=== PATIENT | female | born 1970 | race Two or more races ===

== ENCOUNTER 2017-02-18 21:39 | Observation (INO) | payer OTHER ==
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
[2017-02-18] MEDS ORDERED: HYDROmorphONE/DILAUDID 1 MG/ML SYR IVP ONE (22:15)
[2017-02-18] MEDS ORDERED: ONDANSETRON 4 MG/2 ML VIAL IVP ONE ×2 (22:15→23:25)
[2017-02-18] MEDS ORDERED: ONDANSETRON 4 MG/2 ML VIAL ONE (22:16)
[2017-02-18] MEDS ORDERED: HYDROmorphONE/DILAUDID 1 MG/ML SYR ONE (22:17)
[2017-02-18] MEDS ORDERED: IOPAMIDOL (ISOVUE-300) 100 ML BTL ONE (22:55)
[2017-02-18] MEDS ORDERED: NS 1,000 ML IV ONE (23:25)
[2017-02-19] MEDS ORDERED: fentaNYL 100 MCG/2 ML INJ IVP ONE
[2017-02-19] MEDS ORDERED: KETOROLAC 15 MG/1 ML SDV IVP ONE (00:01)
[2017-02-19] MEDS ORDERED: NS 1,000 ML IV ONE ×2 (00:04→00:05)
[2017-02-19 00:05] LABS: % IMMATURE GRANULYOCYTES 0.3 % (0.0-1.1); ABSOLUTE IMMATURE GRANULOCYTES 0.03 10^3/uL (0.00-0.10); ADD DIFF? NO; ADD MORPH? NO; ADD SCAN? NO; ATYPICAL LYMPHOCYTE FLAG 10 (0-99); FRAGMENT RBC FLAG 0 (0-99); HEMATOCRIT 43.9 % (38.0-47.0); HEMOGLOBIN 14.6 g/dL (12.6-16.3); LEFT SHIFT FLG 0 (0-99); LIPEMIA HEMOLYSIS FLAG 80 (0-99); MEAN CELL HEMOGLOBIN CONCENTR. 33.3 g/dL (32.4-36.7); MEAN CELL VOLUME 87.3 fL (81.5-99.8); MEAN PLATELET VOLUME 12.4 fL (8.7-11.7); PLATELET CLUMPS FLAG 10 (0-99); PLATELET COUNT 301 10^3/uL (150-400); RED BLOOD CELL COUNT 5.03 10^6/uL (4.18-5.33); RED CELL DISTRIBUTION WIDTH 13.2 % (11.5-15.2)
[2017-02-19] MEDS ORDERED: KETOROLAC 30 MG/1 ML SDV ONE (00:08)
[2017-02-19] MEDS ORDERED: fentaNYL 100 MCG/2 ML INJ ONE (00:09)
[2017-02-19 00:12] LABS: ANION GAP 14 mEq/L (8-16); CARBON DIOXIDE 21 mEq/l (22-31); CHLORIDE 103 mEq/L (97-110); CREATININE 0.8 mg/dL (0.6-1.0); GLOMERULAR FILTRATION RATE > 60; GLUCOSE 108 mg/dL (70-100); POTASSIUM 3.8 mEq/L (3.5-5.2); SODIUM 138 mEq/L (134-144)
[2017-02-19] MEDS ORDERED: TDAP ADULT 0.5 ML INJ (BOOSTRIX) IM ONE ×2 (00:26→00:39)
[2017-02-19 00:34] LABS: INR 0.91 (0.83-1.16); PROTIME(PATIENT) 12.2 SEC (12.0-15.0)
[2017-02-19 00:35] LABS: APTT 24.1 SEC (23.0-38.0)
[2017-02-19] MEDS ORDERED: HYDROmorphONE/DILAUDID 1 MG/ML SYR IVP PRN (01:19)
[2017-02-19] MEDS ORDERED: CYCLOBENZAPRINE 10 MG TAB PO PRN (01:28)
[2017-02-19] MEDS ORDERED: LR 1,000 ML IV SCH (01:30)
[2017-02-19] MEDS ORDERED: SCOPOLAMINE HYDROBROMIDE 1 MG/3 DAYS PATCH TD SCH (01:30)
[2017-02-19] MEDS: ACETAMINOPHEN 500 MG TAB PO SCH ×2 (02:27→08:07)
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
[2017-02-19 06:02] LABS: % IMMATURE GRANULYOCYTES 0.1 % (0.0-1.1); ABSOLUTE IMMATURE GRANULOCYTES 0.01 10^3/uL (0.00-0.10); ADD DIFF? NO; ADD MORPH? NO; ADD SCAN? NO; ATYPICAL LYMPHOCYTE FLAG 10 (0-99); FRAGMENT RBC FLAG 0 (0-99); HEMATOCRIT 36.5 % (38.0-47.0); HEMOGLOBIN 11.9 g/dL (12.6-16.3); LEFT SHIFT FLG 0 (0-99); LIPEMIA HEMOLYSIS FLAG 80 (0-99); MEAN CELL HEMOGLOBIN 28.8 pg (27.9-34.1); MEAN CELL HEMOGLOBIN CONCENTR. 32.6 g/dL (32.4-36.7); MEAN CELL VOLUME 88.4 fL (81.5-99.8); MEAN PLATELET VOLUME 11.1 fL (8.7-11.7); PLATELET CLUMPS FLAG 0 (0-99); PLATELET COUNT 254 10^3/uL (150-400); RED BLOOD CELL COUNT 4.13 10^6/uL (4.18-5.33); RED CELL DISTRIBUTION WIDTH 13.3 % (11.5-15.2)
[2017-02-19] MEDS: KETOROLAC 30 MG/1 ML SDV IVP SCH ×2 (06:11→12:52)
[2017-02-19 06:15] LABS: ALANINE AMINOTRANSFERASE 76 IU/L (9-52); ALBUMIN 3.1 g/dL (3.5-5.0); ALKALINE PHOSPHATASE 81 IU/L (38-126); ANION GAP 8 mEq/L (8-16); ASPARTATE AMINOTRANSFERASE 61 IU/L (14-46); BILIRUBIN,TOTAL 0.6 mg/dL (0.1-1.4); CALCIUM 8.4 mg/dL (8.5-10.4); CARBON DIOXIDE 22 mEq/l (22-31); CHLORIDE 108 mEq/L (97-110); CREATININE 0.7 mg/dL (0.6-1.0); GLOMERULAR FILTRATION RATE > 60; GLUCOSE 106 mg/dL (70-100); POTASSIUM 4.3 mEq/L (3.5-5.2); SODIUM 138 mEq/L (134-144); TOTAL PROTEIN 6.1 g/dL (6.3-8.2)
[2017-02-19] MEDS ORDERED: ENOXAPARIN 30 MG/0.3 ML SYR SC SCH (09:00)
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
[2017-02-19 12:01] VITALS: PULSE 62; RESP 16; O2SAT 90
[2017-02-19] MEDS ORDERED: HYDROmorphONE/DILAUDID 2 MG TAB PO PRN (12:08)
[2017-02-19] MEDS ORDERED: IBUPROFEN 200 MG TAB PO PRN (12:09)
--- NOTE | 2017-02-19 12:10 | TRAUMAPN ---
Assessment/Plan: PAD#0 02/19/2017 Patient feeling much better. Ankle xray negative. Tolerating walker boot. Subjective: complaints of pain much less Objective: Vital Signs Temp Pulse Resp BP Pulse Ox 37.1 C 62 16 91/56 L 90 L 02/19/17 11:58 02/19/17 11:58 02/19/17 11:58 02/19/17 11:58 02/19/17 11:58 Laboratory Results 02/19/17 05:51 02/19/17 05:51 02/18/17 02/19/17 02/20/17 05:59 05:59 05:59 Intake Total 2300 Output Total 0 Balance 2300 PT 12.2 SEC (12.0-15.0) 02/18/17 21:45 INR 0.91 (0.83-1.16) 02/18/17 21:45 - C-Spine Clearance Cervical Spine Cleared: Yes Provider who Cleared Cervical Spine: [place] Physical Exam - Physical Exam General Appearance: WD/WN, alert, mild distress Neck: non-tender, full range of motion, supple Respiratory: chest non-tender, lungs clear, normal breath sounds Cardiac/Chest: regular rate, rhythm Abdomen: normal bowel sounds, non-tender, soft Pelvic Exam: deferred Rectal: deferred Back: Normal inspection Skin: normal color, warm/dry Lymphatic: no adenopathy Neuro/Psych: no motor/sensory deficits, alert, normal mood/affect, oriented x 3 Time Spent w/Patient (minutes): 15
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
[2017-02-19 15:50] VITALS: BP 83/57; TEMP 97.8
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
== END 2017-02-19 16:36 | disposition home or self-care (01) ==
LOC: EDUNIT# → F3N 02-19 01:24
PROVIDERS: ADMIT Surgery; ATTEND Surgery
DX: T14.8 Other injury of unspecified body region (principal); S32.018A Other fracture of first lumbar vertebra, initial encounter for closed fracture; M43.06 Spondylolysis, lumbar region; M25.572 Pain in left ankle and joints of left foot; V43.52XA Car driver injured in collision with other type car in traffic accident, initial encounter; Y92.414 Local residential or business street as the place of occurrence of the external cause; Y99.8 Other external cause status; Z23 Encounter for immunization
CPT/HCPCS: 70450; 71260; 72125; 72129; 72132; 73600; 74177; 92523; 97161; 97530; G0378; 82947-QW; 96374; J1170; J1650; J1885; J2405; J3010; Q9967